=== PATIENT | female | born 1965 | race Caucasian/White ===

== ENCOUNTER 2017-07-26 13:28 | Emergency (ER) | payer OTHER ==
[~2017-07-26] VITALS: Ht 167.6 cm; Wt 95.8 kg
[2017-07-26 13:46] LABS: HEMATOCRIT 41.7 % (36.0-46.0); MCH 32.3 PG (29.0-34.0); MCHC 33.3 G/DL (30.0-36.0); MEAN PLAT.VOLUME 8.6 uM^3 (9.5-12.4); PLATELET COUNT 264 K/uL (156-360); RBC DIS.WIDTH-CV 11.7 % (11.8-14.6); RBC DIS.WIDTH-SD 41.1 % (39-53); WHITE BLOOD COUNT 12.7 K/uL (4.1-10.2)
[2017-07-26 13:54] LABS: CHLORIDE 103 mEq/L (99-109); POTASSIUM 3.7 mEq/L (3.7-5.4); SODIUM 137 mEq/L (136-147)
[2017-07-26 13:57] LABS: GLUCOSE 97 mg/dL (70-99)
[2017-07-26 13:58] LABS: ANION GAP 12 MEQ/L (2-14); TOTAL BILIRUBIN 0.6 mg/dL (0.0-1.0)
[2017-07-26 13:59] LABS: SERUM ETHYL ALCOHOL < 10 mg/dL
[2017-07-26 14:00] LABS: ALKALINE PHOSPHATASE 85 IU/L (3-129); GFR ESTIMATE (CALCULATED) > 59 mL/min/
[2017-07-26 14:01] LABS: UREA NITROGEN (BUN) 8 mg/dL (9-23)
[2017-07-26 14:04] LABS: LIPASE 128 U/L (1.0-51.0)
[2017-07-26 14:10] LABS: QUANTITATIVE HCG < 4.0 MIU/ML
[2017-07-26] MEDS ORDERED: PERCOCET 5/31 TABLET PO (16:28)
[2017-07-26 16:36] VITALS: BP 116/86
== END 2017-07-26 16:41 | disposition home or self-care (01) ==
LOC: EME → EDBD 13:28 → EME 13:28 → TRA 13:28
PROVIDERS: Emergency Medicine
DX: S87.82XA Crushing injury of left lower leg, initial encounter (principal); R74.8 Abnormal levels of other serum enzymes; V09.09XA Pedestrian injured in nontraffic accident involving other motor vehicles, initial encounter; Z87.891 Personal history of nicotine dependence
CPT/HCPCS: 73590; 73610; 73630; 74177; 80053; 81003; 83690; 84702; 85027; 99281; 99285; G0480; J2405; J3010; J7030